=== PATIENT | male | born 1970 | race African-American/Black ===

== ENCOUNTER 2021-05-18 17:14 | Inpatient (IN) ==
[2021-05-18] MEDS ORDERED: SODIUM CHLORIDE 0.9% 1,000 ML IV STA ×2 (18:20→21:42)
[2021-05-18 18:52] LABS: Basophils % 0.2 % (0.0-0.8); Hematocrit 42.1 VOL% (42.0-52.0); Hemoglobin 14.2 GM/DL (14.0-18.0); Immature Granulocytes % 0.5 %; Immature Granulocytes Absolute 0.08 #; Lymphocytes # 2.2 10*3/uL (1.4-4.0); Mean Corpuscular HGB Conc 33.7 GM/DL (32-36); Mean Corpuscular Volume 89.8 FL (87-102); Mean Platelet Volume 9.9 FL (9.6-12.0); Monocytes % 7.3 % (1.7-12.7); Platelet Count 231 T/CUMM (130-400); Red Blood Count 4.69 MC/CUMM (3.8-5.5); Red Cell Distribution Width 11.8 % (9.3-17.3); White Blood Count 17.2 T/CUMM (4-12)
[2021-05-18 19:14] LABS: Albumin 5.1 G/DL (3.4-5.0); Bilirubin,Total 1.4 MG/DL (0.20-1.00); Calcium 9.9 MG/DL (8.5-10.1); Osmolality,Calculated 264.4 MOS/KG (273-304)
[2021-05-18 19:49] LABS: Band Neutrophils 1 % (0-10); Lymphocytes 17 % (20-55); Segmented Neutrophils 80 % (50-85); Total Cells Counted 100
[2021-05-18 19:53] LABS: Hypochromasia Slight; Microcytosis Slight; Platelet Estimate Normal
[2021-05-18 23:33] LABS: Bilirubin,Urine Negative (Negative); Blood, Urine Negative (Negative); Glucose,Urine (UA) Negative (Negative); Ketones,Urine 20 mg/dL (Negative); Mucus,Urine Few /LPF (Occasional); Nitrite,Urine Negative (Negative); Protein,Urine 100 MG/DL; RBC,Urine 2 /HPF (0-4); Squamous Epithelial Cell,Urine Occasional /HPF (0-10); Urine Appearance CLEAR (Clear); Urine Specific Gravity 1.027 (1.001-1.035); Urine Urobilinogen < 2.0 EU/DL (0.2-1.0)
[2021-05-18 23:37] LABS: Urine Color Yellow (Yellow)
[2021-05-19 00:17] LABS: Barbiturates Screen,Urine Negative (Negative); Benzodiazepines Screen,Urine Negative (Negative); Cannabinoid Screen,Urine Positive (Negative); Opiate Screen,Urine Negative (Negative); Phencyclidine Screen,Urine Negative (Negative)
[2021-05-19] MEDS ORDERED: ONDANSETRON 4 MG/2 ML VIAL IV PRN (00:32)
[2021-05-19] MEDS ORDERED: ACETAMINOPHEN 325 MG TABLET PO PRN (00:32)
[2021-05-19] MEDS: NICOTINE 14 MG/24 HR PATCH TRANSDERM PRN (01:01)
[2021-05-19] MEDS: SODIUM CHLORIDE 0.9% 1,000 ML IV SCH ×3 (01:05→21:54)
[2021-05-19 06:36] LABS: Basophils % 0.2 % (0.0-0.8); Eosinophils % 0.2 % (0.00-10.9); Hematocrit 39.2 VOL% (42.0-52.0); Hemoglobin 12.8 GM/DL (14.0-18.0); Immature Granulocytes % 0.3 %; Immature Granulocytes Absolute 0.04 #; Mean Corpuscular HGB Conc 32.7 GM/DL (32-36); Mean Corpuscular Volume 90.1 FL (87-102); Monocytes % 8.5 % (1.7-12.7); Neutrophils % 66.8 % (38.7-73.9); Platelet Count 217 T/CUMM (130-400); Red Blood Count 4.35 MC/CUMM (3.8-5.5); Red Cell Distribution Width 11.9 % (9.3-17.3); White Blood Count 12.4 T/CUMM (4-12)
[2021-05-19 06:51] LABS: Risk Ratio 3.07; VLDL Cholesterol 7.6 MG/DL
[2021-05-19 06:54] LABS: Anisocytosis 1+; Lymphocytes 27 % (20-55); Macrocytosis 1+; Platelet Estimate Normal; Segmented Neutrophils 65 % (50-85); Total Cells Counted 100
[2021-05-19 07:27] LABS: Albumin 4.3 G/DL (3.4-5.0); Bilirubin,Total 1.4 MG/DL (0.20-1.00); Osmolality,Calculated 268.1 MOS/KG (273-304); Total Protein 7.6 G/DL (6.4-8.2)
[2021-05-19] MEDS: PANTOPRAZOLE 40 MG TABLET PO SCH (09:26)
[2021-05-19] MEDS: ENOXAPARIN 40 MG/0.4 ML SYRINGE SUBCUT SCH (09:27)
[2021-05-19] MEDS ORDERED: amLODIPine 5 MG TABLET PO ONE (10:12)
[2021-05-19] MEDS ORDERED: REGADENOSON 0.4 MG/5 ML SYRINGE IV ONE (14:30)
[2021-05-20] MEDS: SODIUM CHLORIDE 0.9% 1,000 ML IV SCH ×2 (09:21→18:24)
[2021-05-20] MEDS: ENOXAPARIN 40 MG/0.4 ML SYRINGE SUBCUT SCH (09:22)
[2021-05-20] MEDS: PANTOPRAZOLE 40 MG TABLET PO SCH (09:23)
[2021-05-20] MEDS: amLODIPine 5 MG TABLET PO SCH (09:23)
[2021-05-20] MEDS: NICOTINE 14 MG/24 HR PATCH TRANSDERM PRN (13:39)
[2021-05-20] MEDS ORDERED: ZIPRASIDONE 20 MG/1 ML VIAL IM ONE ×2 (16:09→16:50)
[2021-05-20] MEDS ORDERED: LORazepam 2 MG/1 ML VIAL IM ONE (16:28)
[2021-05-20] MEDS ORDERED: diphenhydrAMINE 50 MG/1 ML VIAL IM ONE (16:28)
[2021-05-20] MEDS ORDERED: HALOPERIDOL 5 MG/ML AMP IM ONE (16:29)
[2021-05-20] MEDS ORDERED: LORazepam 2 MG/1 ML VIAL ONE (16:30)
[2021-05-20] MEDS ORDERED: diphenhydrAMINE 50 MG/1 ML VIAL ONE (16:31)
[2021-05-20] MEDS ORDERED: LORazepam 2 MG/1 ML VIAL IV ONE (16:50)
[2021-05-20] MEDS: LORazepam 2 MG/1 ML VIAL IV PRN ×2 (19:17→21:47)
[2021-05-20] MEDS: diphenhydrAMINE 50 MG/1 ML VIAL IV PRN (20:37)
[2021-05-20] MEDS: ZIPRASIDONE 20 MG/1 ML VIAL IM PRN (20:38)
[2021-05-20] MEDS: traZODone 50 MG TABLET PO SCH (20:38)
[2021-05-20] MEDS: HALOPERIDOL 5 MG/ML AMP IM PRN (20:38)
[2021-05-20] MEDS: QUEtiapine 25 MG TABLET PO SCH (20:38)
[2021-05-21] MEDS: ZIPRASIDONE 20 MG/1 ML VIAL IM PRN (03:46)
[2021-05-21] MEDS: HALOPERIDOL 5 MG/ML AMP IM PRN (03:46)
[2021-05-21] MEDS: diphenhydrAMINE 50 MG/1 ML VIAL IV PRN (03:46)
[2021-05-21] MEDS: LORazepam 2 MG/1 ML VIAL IV PRN (04:55)
[2021-05-21 06:27] LABS: CKMB % 0.6 %; Calcium 8.6 MG/DL (8.5-10.1); High Sensitive Troponin I* 70.8 ng/L (0-78); Osmolality,Calculated 267.1 MOS/KG (273-304); Potassium 4.1 MMOL/L (3.5-5.1)
[2021-05-21] MEDS: amLODIPine 5 MG TABLET PO SCH (08:37)
[2021-05-21] MEDS: ENOXAPARIN 40 MG/0.4 ML SYRINGE SUBCUT SCH (08:37)
[2021-05-21] MEDS: PANTOPRAZOLE 40 MG TABLET PO SCH (08:37)
[2021-05-21 17:01] LABS: Barbiturates Screen,Urine Negative (Negative); Benzodiazepines Screen,Urine Negative (Negative); Cannabinoid Screen,Urine Positive (Negative); Opiate Screen,Urine Negative (Negative); Phencyclidine Screen,Urine Negative (Negative)
[2021-05-21] MEDS: QUEtiapine 25 MG TABLET PO SCH (21:20)
[2021-05-21] MEDS: traZODone 50 MG TABLET PO SCH (21:20)
[2021-05-22 07:10] VITALS: BP 117/79
[2021-05-22] MEDS: amLODIPine 5 MG TABLET PO SCH (08:27)
[2021-05-22] MEDS: ENOXAPARIN 40 MG/0.4 ML SYRINGE SUBCUT SCH (08:27)
[2021-05-22] MEDS: PANTOPRAZOLE 40 MG TABLET PO SCH (08:27)
[2021-05-22 09:12] LABS: Osmolality,Calculated 269.1 MOS/KG (273-304)
[2021-05-22 09:26] LABS: CKMB % 0.2 %
[2021-05-22] MEDS: METOPROLOL SUCCINATE XL 25 MG TABLET PO SCH (11:48)
[2021-05-22] MEDS: NICOTINE 14 MG/24 HR PATCH TRANSDERM PRN (11:48)
[2021-05-22] MEDS: QUEtiapine 25 MG TABLET PO SCH (20:01)
[2021-05-22] MEDS: traZODone 50 MG TABLET PO SCH (20:01)
[2021-05-23] MEDS: PANTOPRAZOLE 40 MG TABLET PO SCH (09:08)
[2021-05-23] MEDS: ENOXAPARIN 40 MG/0.4 ML SYRINGE SUBCUT SCH (09:08)
[2021-05-23] MEDS: NICOTINE 14 MG/24 HR PATCH TRANSDERM PRN (09:08)
[2021-05-23] MEDS: METOPROLOL SUCCINATE XL 25 MG TABLET PO SCH (10:00)
[2021-05-23] MEDS: QUEtiapine 25 MG TABLET PO SCH (20:40)
[2021-05-23] MEDS: traZODone 50 MG TABLET PO SCH (20:40)
[2021-05-24] MEDS: PANTOPRAZOLE 40 MG TABLET PO SCH (08:00)
[2021-05-24] MEDS: ENOXAPARIN 40 MG/0.4 ML SYRINGE SUBCUT SCH (08:01)
[2021-05-24 14:33] LABS: Basophils % 0.3 % (0.0-0.8); Eosinophils # 0.1 10*3/uL (0.0-0.87); Hematocrit 38.8 VOL% (42.0-52.0); Hemoglobin 12.4 GM/DL (14.0-18.0); Immature Granulocytes % 0.3 %; Immature Granulocytes Absolute 0.03 #; Lymphocytes # 2.2 10*3/uL (1.4-4.0); Lymphocytes % 23.3 % (21.2-54.2); Mean Corpuscular Volume 92.4 FL (87-102); Monocytes % 7.2 % (1.7-12.7); Neutrophils % 67.9 % (38.7-73.9); Platelet Count 241 T/CUMM (130-400); Red Cell Distribution Width 11.6 % (9.3-17.3); White Blood Count 9.4 T/CUMM (4-12)
[2021-05-24 14:53] LABS: Albumin 3.6 G/DL (3.4-5.0); Bilirubin,Total 0.7 MG/DL (0.20-1.00); Calcium 9.4 MG/DL (8.5-10.1); Osmolality,Calculated 273.8 MOS/KG (273-304); Potassium 4.2 MMOL/L (3.5-5.1); Total Protein 8.1 G/DL (6.4-8.2)
[2021-05-24 16:14] LABS: Hypochromasia 1+
[2021-05-24 16:15] LABS: Platelet Estimate Normal
[2021-05-24] MEDS: QUEtiapine 25 MG TABLET PO SCH (21:43)
[2021-05-24] MEDS: traZODone 50 MG TABLET PO SCH (21:43)
[2021-05-25] MEDS: PANTOPRAZOLE 40 MG TABLET PO SCH (08:18)
[2021-05-25] MEDS ORDERED: QUEtiapine 25 MG TABLET PO ONE (13:59)
[2021-05-25] MEDS: QUEtiapine 25 MG TABLET PO SCH (21:45)
[2021-05-25] MEDS: traZODone 50 MG TABLET PO SCH (21:45)
[2021-05-26] MEDS: PANTOPRAZOLE 40 MG TABLET PO SCH (08:32)
[2021-05-26] MEDS: QUEtiapine 25 MG TABLET PO SCH (08:32)
== END 2021-05-26 12:24 | disposition home or self-care (01) | DRG 885 ==
LOC: N.ED 17:14 → N.EDINP 17:14 → SUATTDRO 05-19 00:32 → N.TELES 05-19 08:20 → N.ICU 05-20 16:45 → SUATTDRO 05-21 16:35
PROVIDERS: ADMIT Internal Medicine; ATTEND Internal Medicine